=== PATIENT | female | born 1955 | race Caucasian/White ===

== ENCOUNTER 2022-02-28 13:26 | Outpatient (RCR) | payer MEDICARE, SELFPAY | END 2022-03-28 12:22 | disposition home or self-care (01) | LOC: CHSSENLIFE 13:26 | PROVIDERS: PCP Internal Medicine Pulmonary Disease; Visit Provider Psychiatry & Neurology Psychiatry | DX: F33.1 Major depressive disorder, recurrent, moderate (principal); F01.50 Vascular dementia, unspecified severity, without behavioral disturbance, psychotic disturbance, mood disturbance, and anxiety | CPT/HCPCS: 90792 ==